=== PATIENT | female | born 1990 | race Caucasian/White ===

== ENCOUNTER 2018-10-30 20:42 | Emergency (ER) | payer OTHER ==
[~2018-10-30] VITALS: Ht 157.5 cm; Wt 69.9 kg
[2018-10-30] MEDS ORDERED: PROMETHAZINE W473 ML PO (22:37)
[2018-10-30] MEDS ORDERED: TYLENOL COLD &1 EACH PO (22:38)
== END 2018-10-30 22:50 | disposition home or self-care (01) ==
LOC: ER 20:42
DX: J06.9 Acute upper respiratory infection, unspecified (principal)